=== PATIENT | male | born 1970 | race Caucasian/White ===

== ENCOUNTER → 2021-07-25 09:40 | Outpatient (BNVA) | payer SELFPAY | PROVIDERS: Family Provider Nurse Practitioner Family; PCP Registered Nurse; Visit Provider Registered Nurse | DX: F41.1 Generalized anxiety disorder (principal); K21.9 Gastro-esophageal reflux disease without esophagitis; I10 Essential (primary) hypertension; E78.5 Hyperlipidemia, unspecified; F32.A Depression, unspecified | CPT/HCPCS: 80053; 80061; 85025 ==

== ENCOUNTER 2023-01-21 20:00 | Outpatient (CLI) | payer OTHER, SELFPAY | END 2023-01-21 20:01 | disposition home or self-care (01) | LOC: SLEEP 01-22 05:43 | PROVIDERS: Family Provider Nurse Practitioner Family; PCP Registered Nurse; Visit Provider Nurse Practitioner Family | DX: G47.33 Obstructive sleep apnea (adult) (pediatric) (principal); G47.10 Hypersomnia, unspecified; G47.36 Sleep related hypoventilation in conditions classified elsewhere; F51.8 Other sleep disorders not due to a substance or known physiological condition | CPT/HCPCS: 95811 ==

== ENCOUNTER 2023-03-10 10:45 | Emergency (ER) | payer OTHER, SELFPAY ==
[2023-03-10 10:50] VITALS: BP 147/86; PULSE 90; RESP 16; TEMP 36.7; O2SAT 97; BMI 38.0
--- NOTE | 2023-03-10 13:18 | ED_ITS ---
HPI - Wound/Laceration General: Chief Complaint: Wound/Laceration Stated Complaint: jaw, left arm lac/workmans comp Time Seen by Provider: 03/10/23 12:36 History of Present Illness: Patient presents today with complaints of a laceration to his chin and his left AC region. Patient was at work when a hose carrying an oily substance busted loose and striking him in the chin and the left AC region causing lacerations. Patient denies any loss of consciousness bleeding is controlled. Review of Systems General: Reports: 10 or more systems reviewed and unremarkable except in HPI and below PFSH ED PFSH: Medical History Essential hypertension Social History Smoking and tobacco status: never smoked Alcohol intake: never Substance/Drug Use: never Adopted: No Caregiver/support person: No Lives independently: No Household members: spouse Marital status: Do you think of yourself as: Straight/Heterosexual Current gender identity: Male Physical Exam Const: COMMON NORMALS: no acute distress, average body habitus, patient oriented x3, no limitations, healthy appearing, alert and well nourished HENMT: COMMON NORMALS: normocephalic, atraumatic, hearing grossly normal bilaterally, external ears normal, Normal external nose present and moist oral mucous membranes HEAD & SCALP: normocephalic and atraumatic NOSE: Normal external nose present EXTERNAL EAR: Yes external ears normal OTHER: Patient has approximately a 1 cm laceration to his left lower mandible region is clean bleeding is controlled Eye: COMMON NORMALS: Equal, round and reactive pupils present, EOMs intact bilaterally, conjunctivae normal and no scleral icterus CONJUNCTIVA: Yes conjunctivae normal PUPIL: Yes Equal, round and reactive pupils present Neck/C-Spine: COMMON NORMALS: full ROM, no lymphadenopathy, supple, no meningeal signs, no JVD and Thyroid normal THYROID: Thyroid normal Chest: COMMONS NORMALS: normal inspection of the chest and normal palpation of entire chest wall Resp: COMMON NORMALS: normal respiratory effort, No retractions, No use of accessory muscles and clear to auscultation bilaterally AUSCULTATION: clear to auscultation bilaterally Cardio: COMMON NORMALS: no JVD, regular rate, regular rhythm, S1 normal heart sound present, S2 normal heart sound present, No gallops present (Cardio), No clicks present (Cardio), No murmurs present (Cardio) and No rub (Cardio) RATE: regular rate RHYTHM: regular rhythm HEART SOUNDS: S1 normal heart sound present and S2 normal heart sound present GI: COMMON NORMALS: Normal to inspection, nondistended, normoactive bowel sounds present, Soft to palpation, non-tender, No hepatosplenomegaly present and no masses PALPATION: Yes Soft to palpation and Yes No hepatosplenomegaly present Extremity: NARRATIVE EXTREMITY EXAM: Patient having extensive hematoma and bruising to his left bicipital before meals and forearm region. Patient is approximately 3-1/2 cm laceration full- thickness to his left AC space region. Bleeding is controlled at this time. Neuro: COMMON NORMALS: patient oriented x3 SENSORIUM/ORIENTATION: Yes alert MENINGEAL SIGNS: Yes no meningeal signs Procedures Laceration Laceration 1: Site: neck Side (If applicable): left Size (cm): 1 Description: linear and clean Depth: simple, single layer Pre-repair: wound explored (Cleansed with Betadine) and deep structures intact Skin layer closed with: other (Dermabond) Laceration 2: Site: upper extremity (Left AC space) Side (If applicable): left Size (cm): 3.5 Description: linear Depth: simple, single layer Local Anesthetic: lidocaine 2% Amount of anesthesia used (mL): 5 Pre-repair: wound explored (Cleansed with Betadine) and deep structures intact Skin layer closed with: nylon Size (cm): 4-0 Number of sutures: 7 Technique: simple, interrupted Course Vital Signs: Vital signs: Vital Signs Temperature 98.0 F 03/10/23 10:50 Pulse Rate 90 03/10/23 10:50 Respiratory Rate 16 03/10/23 10:50 Blood Pressure 147/86 03/10/23 10:50 Pulse Oximetry 97 03/10/23 10:50 Oxygen Delivery Me thod Room Air 03/10/23 10:50 MDM - Wound/Laceration Medical Decision Making Patient presented to the ER with lacerations on his left neck and left AC space region these wounds were cleansed both with Betadine the wound on his neck was closed with Dermabond the wound in his left AC space was closed with 4-0 nylon in a simple interrupted suture type fashion using 7 sutures both wounds closed very nicely neither 1 had any complications. Patient will be discharged on Bact rim and told to follow-up in approximately 10 days for reevaluation and suture removal. Differential Diagnosis Likely laceration; Unlikely abscess, abrasion or avulsion of skin Medical Records I reviewed the patient's medical records. Lab Data I reviewed the patient's lab results. Discharge Plan Discharge Patient Disposition: Home Clinical Impression: Laceration Contusion Qualifiers: Encounter type: initial encounter Contusion area: upper arm Condition: Stable Prescriptions: New Bactrim DS 800-160 mg tablet 1 tab PO BID 10 Days Qty: 20 0RF No Action sertraline 50 mg tablet 50 mg PO DAILY Qty: 90 3RF sertraline 100 mg tablet See Rx Instructions .ROUTE .COMPLEX Qty: 90 3RF Dose Instruction: TAKE 1 TABLET BY MOUTH EVERY DAY Rx Instructions: TAKE 1 TABLET BY MOUTH EVERY DAY Patient needs an appt before next refill pantoprazole 40 mg tablet,delayed release (DR/EC) 40 mg PO DAILY Qty: 90 3RF amlodipine 10 mg tablet 10 mg PO DAILY Qty: 90 0RF lisinopril-hydrochlorothiazide 20-25 mg tablet 1 tab PO DAILY Qty: 90 0RF doxycycline hyclate 100 mg tablet 100 mg PO BID 10 Days Qty: 20 0RF Discharge Orders: Discharge ED (Routine); Ordered 03/10/23 Ordered By: Dayron Jenkins Referrals: Lorena Paiz NP [Primary Care Provider] - 7-10 days Patient Instructions: Contusion, Care For Your Stitches (ED), Laceration (DC) Activity Restrictions/Additional Instructions: Please keep your areas of laceration clean and dry change dressing as needed. Please follow-up with your PCP in approximately 10 to 14 days as needed for reevaluation and probable suture removal. If you develop any excess pain, redness, streaking, foul-smelling odor or discharge please return to the ER. Coding Level of Care Code ED Manager Of [employer] for Suraj Rockwell
[2023-03-10 15:23] VITALS: BP 147/86; PULSE 90; RESP 16; O2SAT 97
== END 2023-03-10 15:04 | disposition home or self-care (01) ==
PROVIDERS: Emergency Provider Emergency Medicine; PCP Nurse Practitioner Family
DX: S01.81XA Laceration without foreign body of other part of head, initial encounter (principal); S41.112A Laceration without foreign body of left upper arm, initial encounter; I10 Essential (primary) hypertension; W22.8XXA Striking against or struck by other objects, initial encounter
CPT/HCPCS: 12002; 12011; 99283